=== PATIENT | female | born 1980 | race Asian ===

== ENCOUNTER 2018-09-14 09:46 | Outpatient (CLI) | payer MEDICAID, SELFPAY ==
[2018-09-14 11:37] LABS: Hemoglobin A1C 6.8 % (4.5-6.2)
[2018-09-14 11:44] LABS: Glucose 212 mg/dL (70-100)
== END 2018-09-14 10:06 ==
PROVIDERS: PCP Nurse Practitioner Family; Visit Provider Obstetrics & Gynecology Gynecology
DX: R81 Glycosuria (principal)
CPT/HCPCS: 36415; 82947; 83036

== ENCOUNTER 2021-06-05 16:43 | Outpatient (REF) | payer MEDICAID, SELFPAY ==
[2021-06-05 20:40] LABS: ALT 36 U/L (14-59); AST 17 U/L (15-37); Alkaline Phosphatase 168 U/L (46-116); Anion Gap 10.1 mmol/L (3-11); BUN 15 mg/dL (7-18); Bilirubin, Total 0.4 mg/dL (0.2-1.0); CO2 24.9 mmol/L (21.0-32.0); CREATININE 0.6 mg/dL (0.55-1.02); Calcium 9.2 mg/dL (8.5-10.1); Chloride 100 mmol/L (98-107); Glucose 363 mg/dL (74-106); Potassium 4.3 mmol/L (3.5-5.1); Sodium 135 mmol/L (136-145); TSH (W/Ref FT4) < 0.01 uIU/mL (0.36-3.74); Total Protein 7.9 g/dL (6.4-8.2)
[2021-06-05 20:43] LABS: Abs Immature Grans 0.01 10^3/uL (0.0-0.06); Absolute Basophil Count 0.01 10^3/uL (0.0-0.2); Absolute Eosinophil Count 0.02 10^3/uL (0.0-0.7); Absolute Monocyte Count 0.25 10^3/uL (0.1-0.8); Absolute Neutrophil Count 3.09 10^3/uL (1.2-6.7); Basophils % 0.2; Eosinophils % 0.4; HCT 42.4 % (36.0-46.0); Immature Grans % 0.2; Lymphocytes % 33.5; MCH 25.4 pg (27.0-33.0); MCV 76.8 fL (80-95); Monocytes % 4.9; Neutrophils % 60.8; Nucleated RBC 0 %; Platelet Count 185 10^3/uL (130-400); RBC 5.52 10^6/uL (3.93-5.22); RDW 11.6 % (11.7-14.6); RDW-SD 31.6 fL; WBC 5.08 10^3/uL (4.4-10.8)
[2021-06-05 20:57] LABS: FREE T4 3.37 ng/dL (0.76-1.46)
== END 2021-06-05 16:44 | disposition home or self-care (01) ==
LOC: NCHCN 16:43
PROVIDERS: PCP Nurse Practitioner Family; Visit Provider Nurse Practitioner Family
DX: E11.9 Type 2 diabetes mellitus without complications (principal)
CPT/HCPCS: 80053; 84439; 84443; 85025

== ENCOUNTER 2021-07-04 14:41 | Outpatient (REF) | payer MEDICAID, SELFPAY ==
[2021-07-04 17:17] LABS: Bilirubin Negative (Negative); Blood Trace-intact (Negative); Clarity Sl Cloudy (Clear); Glucose 500 mg/dL (Negative); Ketones Negative (Negative); Leukocyte Esterase Negative (Negative); Nitrite Negative (Negative); Specific Gravity 1.015 (1.005-1.025); Urobilinogen 0.2 EU/dL (Up TO 0.2); pH 5.5 (5-8)
[2021-07-04 18:12] LABS: FREE T4 2.56 ng/dL (0.76-1.46)
[2021-07-04 18:20] LABS: TSH < 0.01 uIU/mL (0.36-3.74)
[2021-07-04 19:14] LABS: Bacteria Few HPF (Negative); C & S Indicated? No; Crystals Negative HPF (Negative); Epithelial Cells Many HPF (Negative); Mucus Negative (Negative); RBC 0-2 HPF (0-2)
[2021-07-04 22:03] LABS: T3,Free 9.5 pg/mL (2.8-5.3)
[2021-07-05 14:29] LABS: PROTEIN 7.1 mg/dL; Prot/Crea Ur Ratio 0.22
[2021-07-05 17:53] LABS: Thyrotropin Receptor Ab 1.43 IU/L
== END 2021-07-04 14:42 | disposition home or self-care (01) ==
LOC: NCHCN 14:41
PROVIDERS: PCP Nurse Practitioner Family; Visit Provider Nurse Practitioner Family
DX: E05.90 Thyrotoxicosis, unspecified without thyrotoxic crisis or storm (principal); E11.9 Type 2 diabetes mellitus without complications; Z65.8 Other specified problems related to psychosocial circumstances
CPT/HCPCS: 81003; 81015; 82565; 84156; 84235; 84439; 84443; 84481

== ENCOUNTER → 2021-08-30 02:41 | Outpatient (CLI) | payer MEDICAID, SELFPAY ==
--- NOTE | 2021-08-30 10:00 | DI.NM_ITS ---
Exam(s) NM I123 THYROID UP SC DAY 2 CLINICAL HISTORY: HYPERTHYROIDISM, E05.90. COMPARISON: NM NM I123 THYROID UP SC DAY 1 from 08/29/2021 TECHNIQUE: Capsule Dose: 335 uCi I-123 Images: At 4 and 24 hours. FINDINGS: The total radioiodine uptake was 46% at 24 hours. No cold or hot nodules are demonstrated. There is diffuse homogeneous uptake in the thyroid gland wit h high target to background levels. IMPRESSION: 1. Total radioiodine uptake of 46%. 2. Findings consistent with hyperthyroidism. Graves disease may be considered. Please correlate wit h clinical findings. SNM Guidelines: Normal uptake values 10-35%. Graves Uptake >50-80%. DATA REPOSITORY:
== END ==
PROVIDERS: PCP Nurse Practitioner Family; Visit Provider Nurse Practitioner Family
DX: E05.90 Thyrotoxicosis, unspecified without thyrotoxic crisis or storm (principal)
CPT/HCPCS: 78014; A9512

== ENCOUNTER 2021-09-13 09:42 | Outpatient (REF) | payer MEDICAID, SELFPAY | END 2021-09-13 09:43 | disposition home or self-care (01) | LOC: NCHCN 09:42 | PROVIDERS: PCP Nurse Practitioner Family; Visit Provider Nurse Practitioner Family | DX: E11.9 Type 2 diabetes mellitus without complications (principal) | CPT/HCPCS: 83036 ==